=== PATIENT | female | born 1965 | race Caucasian/White ===

== ENCOUNTER 2020-12-09 09:09 | Day surgery (SDC) | payer MEDICAID, SELFPAY ==
[2020-12-07 15:32] LABS: BASOPHILS # (AUTO) 0.1 K/uL (0.0-0.2); BASOPHILS % (AUTO) 0.8 % (0.0-2.0); EOSINOPHILS # (AUTO) 0.2 K/uL (0.0-0.4); EOSINOPHILS % (AUTO) 2.6 % (0.0-4.0); HEMATOCRIT 39.3 % (36-48); HEMOGLOBIN 13.2 g/dL (12.0-16.0); LYMPHOCYTES # (AUTO) 3.6 K/uL (1.0-5.5); LYMPHOCYTES % (AUTO) 43.9 % (20.5-51.5); MEAN CORPUSCULAR HEMOGLOBIN 28 pg (27-31); MEAN CORPUSCULAR HGB CONC 34 % (32-36); MEAN CORPUSCULAR VOLUME 84 fL (79.0-98.0); MONOCYTES # (AUTO) 0.7 K/uL (0.0-1.0); MONOCYTES % (AUTO) 8.7 % (1.7-9.3); NEUTROPHILS # (AUTO) 3.6 K/uL (1.8-7.7); PLATELET COUNT (AUTO) 335 K/uL (130-430); RED BLOOD CELL COUNT(AUTO) 4.67 MIL/uL (4.2-6.2); RED CELL DISTRIBUTION WIDTH 15.1 % (9.0-15.0); WHITE BLOOD COUNT (AUTO) 8.1 K/uL (4.8-10.8)
[2020-12-07 15:57] LABS: ALBUMIN 3.5 g/dL (3.4-4.8); CREATININE 1.01 mg/dL (0.55-1.30); TOTAL BILIRUBIN 0.2 mg/dL (0.0-1.0)
[~2020-12-09] VITALS: Ht 157.5 cm; Wt 65.3 kg
[2020-12-09] MEDS ORDERED: ROCURONIUM BROMIDE 10 MG/ML (ZEMURON) IV ONE (11:30)
[2020-12-09] MEDS ORDERED: fentaNYL CITRATE/PF 100 MCG/2 ML AMP IVP ONE (11:30)
[2020-12-09] MEDS ORDERED: NS IRRIG SOLN 1000 ML IR ONE (11:30)
[2020-12-09] MEDS ORDERED: PROPOFOL 200MG/ 20ML VIAL (DIPRIVAN) IV ONE (11:30)
[2020-12-09] MEDS ORDERED: MIDAZOLAM HCL 5 MG/5 ML VIAL IVP ONE (11:30)
[2020-12-09] MEDS ORDERED: MEPERIDINE 100 MG INJ. 100 MG/ML VIAL IM ONE (11:30)
[2020-12-09] MEDS ORDERED: BUPIVACAINE /EPINEPHRINE/PF 0.5% 30 ML VIAL INJ ONE (11:30)
[2020-12-09] MEDS ORDERED: LR 1,000 ML IV.SOLN IV ONE (11:30)
[2020-12-09] MEDS ORDERED: SUCCINYLCHOLINE CHLORIDE 20 MG/ML(QUELICIN) IVP ONE (11:30)
[2020-12-09] MEDS ORDERED: DEXAMETHASONE SOD PHOSPHATE 4 MG/ML VIAL IVP ONE (11:30)
[2020-12-09] MEDS ORDERED: SUGAMMADEX SODIUM 200 MG/2 ML VIAL IV ONE (11:30)
[2020-12-09] MEDS ORDERED: CEFAZOLIN 2 GM IVPB PREMIX 50 ML IV ONE (11:30)
[2020-12-09] MEDS ORDERED: SEVOFLURANE 15 MIN GAS INH ONE (11:30)
[2020-12-09 15:10] VITALS: BP_SYST 119
== END 2020-12-09 15:05 | disposition home or self-care (01) ==
LOC: SDS 09:09 → SMU 09:09 → SDS 15:05
PROVIDERS: ATTEND Obstetrics & Gynecology
DX: N73.6 Female pelvic peritoneal adhesions (postinfective) (principal); N83.202 Unspecified ovarian cyst, left side; Z20.828 Contact with and (suspected) exposure to other viral communicable diseases
CPT/HCPCS: 36415; 58660; 80053; 85025; 86886; 86900; 86901; C1727; C9399; J0330; J0690; J1100; J2175; J2250; J2704; J3010; J3490; J7120; U0003

== ENCOUNTER 2022-11-11 18:55 | Emergency (ER) | payer MEDICAID ==
[~2022-11-11] VITALS: Ht 157.5 cm; Wt 61.2 kg
[2022-11-11 19:17] VITALS: BP_SYST 127
--- NOTE | 2022-11-11 19:30 | NUR ---
DR. SHELL WITH PATIENT IN TRIAGE FOR MSE.
[2022-11-11 20:06] LABS: BASOPHILS # (AUTO) 0.1 K/uL (0.0-0.2); BASOPHILS % (AUTO) 0.5 % (0.0-2.0); EOSINOPHILS # (AUTO) 0.2 K/uL (0.0-0.4); EOSINOPHILS % (AUTO) 1.7 % (0.0-4.0); HEMATOCRIT 38.3 % (36-48); HEMOGLOBIN 12.5 g/dL (12.0-16.0); LYMPHOCYTES # (AUTO) 2.4 K/uL (1.0-5.5); LYMPHOCYTES % (AUTO) 18.6 % (20.5-51.5); MEAN CORPUSCULAR HEMOGLOBIN 28 pg (27-31); MEAN CORPUSCULAR HGB CONC 33 % (32-36); MEAN CORPUSCULAR VOLUME 85 fL (79.0-98.0); MONOCYTES # (AUTO) 0.7 K/uL (0.0-1.0); MONOCYTES % (AUTO) 5.7 % (1.7-9.3); NEUTROPHILS # (AUTO) 9.4 K/uL (1.8-7.7); NEUTROPHILS % (AUTO) 73.5 % (40.0-70.0); PLATELET COUNT (AUTO) 338 K/uL (130-430); RED BLOOD CELL COUNT(AUTO) 4.48 MIL/uL (4.2-6.2); RED CELL DISTRIBUTION WIDTH 14.9 % (9.0-15.0); WHITE BLOOD COUNT (AUTO) 12.8 K/uL (4.8-10.8)
[2022-11-11 20:19] LABS: ALANINE AMINOTRANSFERASE 29 U/L (12-78); ALBUMIN 3.1 g/dL (3.4-4.8); ANION GAP 10 (5-15); ASPARTATE AMINOTRANSFERASE 24 U/L (10-37); C-REACTIVE PROTEIN QUANT 2.8 mg/dL (0-0.5); CALCIUM 8.5 mg/dL (8.4-11.0); CHLORIDE 103 mmol/L (98-107); CREATININE 0.98 mg/dL (0.55-1.30); GFR AFRICAN AMERICAN 75 mL/min (>90); GLUCOSE 166 mg/dL (70-99); TOTAL BILIRUBIN 0.3 mg/dL (0.0-1.0); UREA NITROGEN, BLOOD 15 mg/dL (8-21)
[2022-11-11 20:29] LABS: ACETONE, SERUM SMALL (NEGATIVE)
--- NOTE | 2022-11-11 20:50 | NUR ---
PT REPORTING SOB NOW. PT SPEAKING IN FULL SENTENCES, O2 SAT 99% ON RA. MADE AWARE.
[2022-11-11] MEDS ORDERED: LIDOCAINE 1% 10 MG/ML, 20 ML MDV INJ ONE (21:15)
[2022-11-11] MEDS ORDERED: DIPHTH,PERTUSS(ACELL),TET VAC 0.5 ML VIAL (Tdap) I.M. ONE (21:15)
[2022-11-11] MEDS ORDERED: BACITRACIN 1 GM OINT TP ONE (21:15)
--- NOTE | 2022-11-11 21:15 | NUR ---
Patient to ER bed 04 to gown for evaluation. Side rails up. Report given to JUDIE JONAS.
--- NOTE | 2022-11-11 21:17 | NUR ---
Patient brought in for facial abcess to upper left fore head. reports fell on wooden fence and scraped to forehead 2 days ago.
--- NOTE | 2022-11-11 21:26 | NUR ---
dr. avina at bedside for i & d
[2022-11-11] MEDS ORDERED: CLIN-142 PO (21:43)
[2022-11-11] MEDS ORDERED: IBUP-1969 PO (21:43)
[2022-11-11] MEDS ORDERED: CLINDAMYCIN HCL 150 MG CAPSULE PO ONE (21:45)
--- NOTE | 2022-11-11 21:50 | NUR ---
housekeeping/laundry called for clindamycin.
[2022-11-11 22:23] VITALS: BP_SYST 122
--- NOTE | 2022-11-11 22:23 | NUR ---
Patient given written and verbal discharge instructions and verbalizes understanding. ER MD discussed with patient the results and treatment provided. Patient in stable condition. ID arm band removed. Rx of clindamycin and ibuprofen given. Patient educated on pain management and to follow up with PMD. Pain Scale 0/10 Opportunity for questions provided and answered. Medication side effect fact sheet provided.
== END 2022-11-11 22:23 | disposition home or self-care (01) ==
LOC: SED 18:55
DX: L02.01 Cutaneous abscess of face (principal); E78.5 Hyperlipidemia, unspecified; E11.9 Type 2 diabetes mellitus without complications; I10 Essential (primary) hypertension; Z79.899 Other long term (current) drug therapy
CPT/HCPCS: 99283; 10060; 80053; 82009; 85025; 86140; 36415; 90715; 83605; 90471; J2001